=== PATIENT | male | born 1980 | race Caucasian/White ===

== ENCOUNTER 2016-05-28 08:39 | Emergency (ER) | payer SELFPAY ==
--- NOTE | 2016-05-28 08:51 | ED.PDOC ---
History of Present Illness - General Stated Complaint: cough, congestion Time Seen by Provider: 05/28/16 08:50 Source: patient, RN notes reviewed, Vital Signs reviewed Exam Limitations: no limitations - History of Present Illness Initial Comments: Hemant Jefferson 35 y/o male smoker stated that he started getting sick with cough and congestion one week ago and had gotten worse becoming more frequent quit smoking 4 days ago.Denies chronic medical problem stating had never been sick before.Denies exposure to someone sick. Timing/Duration: getting worse, other - 7 days ago Severity: moderate Possible Cause: smoke exposure Improving Factors: nothing, eating Worsening Factors: nothing Associated Symptoms: cough, nasal drainage Respiratory Risk Factors: no cause identified Allergies/Adverse Reactions: Allergies NO KNOWN ALLERGY Allergy (Verified 05/28/16 08:48) Home Medications: Ambulatory Orders Cefuroxime Axetil [Ceftin] 500 mg PO BID #14 tab 05/28/16 Chlorpheniramine Maleate [Chlor-Trimeton Allergy] 12 mg PO BID #30 tab 05/28/16 Dextromethorphan-Guaifenesin [Mucinex Dm Maximum Streng 60-1200 mg] 1 tab PO BID #30 tab 05/28/16 Review of Systems - Review of Systems Constitutional: States: no symptoms reported, see HPI EENTM: States: no symptoms reported, see HPI Respiratory: States: see HPI Cardiology: States: no symptoms reported Gastrointestinal/Abdominal: States: no symptoms reported Genitourinary: States: no symptoms reported Musculoskeletal: States: no symptoms reported Skin: States: no symptoms reported Neurological: States: no symptoms reported Endocrine: States: no symptoms reported Hematologic/Lymphatic: States: no symptoms reported Past Medical History (General) - Patient Medical History Hx Stroke: No Hx Congestive Heart Failure: No Hx Diabetes: No Hx MRSA: No MRSA Source:: Wound Surgical History: no surgical history - Vaccination History Hx Tetanus, Diphtheria Vaccination: - unknown Hx Influenza Vaccination: No Hx Pneumococcal Vaccination: No - Social History Hx Tobacco Use: Yes - Quit beginning of 05/2016 - Activities of Daily Living Patient Lives Alone: No - family Grooming Ability: Independent Eating (Feeding) Ability: Independent Toileting Ability: Independent Family Medical History - Family History Mother Family History: No Known Living Status: Still Living Hx Family Asthma: Yes - copd dad Physical Exam - Physical Exam General Appearance: Alert, Comfortable, No apparent distress Eye Exam: bilateral normal ENT Exam: normal ENT inspection, hearing grossly normal, TMs normal, pharynx normal, nasal congestion Neck: non-tender, full range of motion Respiratory: chest non-tender, lungs clear, normal breath sounds, no respiratory distress, no accessory muscle use Cardiovascular/Chest: normal peripheral pulses, regular rate, rhythm, no edema, no gallop, no JVD, no murmur Gastrointestinal/Abdominal: normal bowel sounds, non tender, soft, no organomegaly, no pulsatile mass Extremity: normal range of motion, non-tender, normal inspection, no pedal edema , no calf tenderness Neurologic: no motor/sensory deficits, alert, normal mood/affect, oriented x 3, abnormal cerebellar tests Skin Exam: normal color, warm/dry Lymphatic: no adenopathy Progress - Results/Orders Results/Orders: 05/28/16 08:52 SVN/Updraft Therapy .ONCE 05/28/16 08:53 IV Care:Saline Lock per Protoc QSHIFT 05/28/16 09:[facility] Laboratory Results WBC 13.7 K/mm3 (4.8-10.8) H 05/28/16 09:05 RBC 5.49 M/mm3 (4.70-6.10) 05/28/16 09:05 Hgb 15.1 gm/dL (14.0-18.0) 05/28/16 09:05 Hct 45.2 % (42.0-52.0) 05/28/16 09:05 MCV 82.4 fl (80.0-94.0) 05/28/16 09:05 MCH 27.5 pg (27.0-31.0) 05/28/16 09:05 MCHC 33.3 g/dL (33.0-37.0) 05/28/16 09:05 RDW 14.2 % (11.5-14.5) 05/28/16 09:05 Plt Count 247 K/mm3 (130-400) 05/28/16 09:05 MPV 9.4 fl (7.40-10.4) 05/28/16 09:05 Absolute Neuts (auto) 10.30 K/uL (1.8-6.8) H 05/28/16 09:05 Absolute Lymphs (auto) 1.60 K/uL (1.0-3.4) 05/28/16 09:05 Absolute Monos (auto) 1.40 K/uL (0.2-0.8) H 05/28/16 09:05 Absolute Eos (auto) 0.10 K/uL (0.0-0.4) 05/28/16 09:05 Absolute Basos (auto) 0.30 K/uL (0.0-0.1) H 05/28/16 09:05 Neutrophils % 75.5 % (42.0-78.0) 05/28/16 09:05 Lymphocytes % 11.7 % (20.0-50.0) L 05/28/16 09:05 Monocytes % 10.3 % (2.0-9.0) H 05/28/16 09:05 Eosinophils % 0.5 % (1.0-5.0) L 05/28/16 09:05 Basophils % 2.0 % (0.0-2.0) 05/28/16 09:05 - EKG/XRAY/CT XRAY: chest - no acute abnormality Departure - Departure Clinical Impression: Bronchitis Sinusitis Qualifiers: Sinusitis location: unspecified location Chronicity: acute Recurrence: not specified Qualifier Code: (J01.90) Acute sinusitis, unspecified Time of Disposition: 10:18 Disposition: Discharge to Home or Self Care Condition: Good Departure Forms: ED Discharge - Pt. Copy Instructions: DI for Acute Bronchitis, DI for Sinusitis, Assess Your Smoking Habit, Serious Ways to Stop Smoking Prescriptions: Cefuroxime Axetil [Ceftin] 500 mg PO BID #14 tab Chlorpheniramine Maleate [Chlor-Trimeton Allergy] 12 mg PO BID #30 tab Dextromethorphan-Guaifenesin [Mucinex Dm Maximum Streng 60-1200 mg] 1 tab PO BID #30 tab Home Medications: Ambulatory Orders Cefuroxime Axetil [Ceftin] 500 mg PO BID #14 tab 05/28/16 Chlorpheniramine Maleate [Chlor-Trimeton Allergy] 12 mg PO BID #30 tab 05/28/16 Dextromethorphan-Guaifenesin [Mucinex Dm Maximum Streng 60-1200 mg] 1 tab PO BID #30 tab 05/28/16
[2016-05-28] MEDS ORDERED: IPRATROPIUM/ALBUTEROL 3 ML VIAL NEB ONE ×2 (09:06→09:08)
--- NOTE | 2016-05-28 10:02 | RAD ---
EXAM DESCRIPTION: Chest,2 Views CLINICAL HISTORY: Cough COMPARISON: 06/11/2015 TECHNIQUE: Two-views of the chest. FINDINGS: Normal cardiomediastinal silhouette. No edema, infiltrate or effusion. No interval change IMPRESSION: No acute chest process. Electronically signed by: Yoni Cortes MD 05/28/2016 10:01 AM CDT
[2016-05-28] MEDS ORDERED: cefTRIAXone SODIUM 1 GM VIAL IM ONE (10:26)
[2016-05-28] MEDS ORDERED: LIDOCAINE 1% 10 ML VIAL INJ ONE (10:32)
[2016-05-28 11:27] VITALS: BP 128/82; TEMP 98.9; O2SAT 96
== END 2016-05-28 11:00 | disposition home or self-care (01) ==
LOC: ER 08:39
DX: J40 Bronchitis, not specified as acute or chronic (principal); J01.90 Acute sinusitis, unspecified; Z87.891 Personal history of nicotine dependence
CPT/HCPCS: 36415; 71020; 85025; 94640; J0696; J7620

== ENCOUNTER 2016-12-25 16:27 | Emergency (ER) | payer MEDICAID ==
[2016-12-25 16:37] VITALS: BP 148/91; TEMP 98.7; O2SAT 95
[2016-12-25] MEDS ORDERED: GABAPENTIN 300 MG CAP PO ONE ×2 (16:51→17:17)
[2016-12-25] MEDS ORDERED: HYDROcodone 7.5MG/APAP 325MG 1 EA TAB PO ONE (16:51)
[2016-12-25] MEDS ORDERED: predniSONE 20 MG TAB PO ONE (16:51)
--- NOTE | 2016-12-25 16:54 | ED.PDOC ---
History of Present Illness - General Chief Complaint: Upper Extremity Injury Stated Complaint: Left forearm discomfort/injury Time Seen by Provider: 12/25/16 16:43 Source: patient Exam Limitations: no limitations - History of Present Illness Initial Comments: the patient is a 36-year-old male presenting to the emergency room secondary to pain in his left upper extremity. He was playing with his children when he got not down and hit his left elbow just lateral to his olecranon. There is no laceration. There is a mild abrasion where he hit. There is no bony deformity or crepitus. He is neurovascularly preserved. Strength is at his baseline. He reports that moving the forearm does cause pain in that area. It is a shooting type pain and he is getting some mild muscle spasm. Range of motion is preserved actively and passively. The patient has had a wrist surgery on that side previously. Timing/Duration: momentarily, 1/2 hour Severity: moderate Improving Factors: nothing Worsening Factors: movement Associated Symptoms: denies symptoms Allergies/Adverse Reactions: Allergies NO KNOWN ALLERGY Allergy (Verified 12/25/16 16:40) Home Medications: Ambulatory Orders Fcrnqtjtmqool-Skyq-Putfntklut [Fioricet] 1 ea PO Q8H PRN #21 tab 12/25/16 predniSONE [Prednisone] 20 mg PO DAILY #3 tab 12/25/16 Review of Systems - Review of Systems Constitutional: States: no symptoms reported EENTM: States: no symptoms reported Respiratory: States: no symptoms reported Cardiology: States: no symptoms reported Gastrointestinal/Abdominal: States: no symptoms reported Genitourinary: States: no symptoms reported Musculoskeletal: States: see HPI Skin: States: see HPI Neurological: States: no symptoms reported, anxiety Endocrine: States: no symptoms reported All other Systems: No Change from Baseline Past Medical History (General) - Patient Medical History Hx Stroke: No Hx Congestive Heart Failure: No Hx Diabetes: No Hx MRSA: No MRSA Source:: Wound - Vaccination History Hx Tetanus, Diphtheria Vaccination: - unknown Hx Influenza Vaccination: No Hx Pneumococcal Vaccination: No - Social History Hx Tobacco Use: Yes Family Medical History - Family History Mother Family History: No Known Living Status: Still Living Hx Family Asthma: Yes - copd dad Physical Exam - Physical Exam General Appearance: Alert, Anxious Eye Exam: bilateral normal Ears, Nose, Throat: hearing grossly normal, normal ENT inspection, normal pharynx Neck: full range of motion, supple Respiratory: chest non-tender, lungs clear, normal breath sounds, no respiratory distress, no accessory muscle use Cardiovascular/Chest: normal peripheral pulses, no edema Peripheral Pulses: radial,right: 2+, radial,left: 2+ Rectal Exam: deferred Extremity: normal range of motion - given his chronic changes, no pedal edema, no calf tenderness, normal capillary refill, other - pain as above. Neurologic: benefit authorizer II-XII nml as tested, no motor/sensory deficits - at this time. , alert, oriented x 3 - he is very anxious Skin Exam: normal color Comments: Vital Signs - 24 hr 12/25/16 16:35 Temperature 98.7 F Pulse Rate [ 114 H Right Radial] Respiratory 20 Rate Blood Pressure 148/91 [Right Arm] O2 Sat by Pulse 95 Oximetry Progress - Progress Progress: 12/25/16 16:59 the patient's 36-year-old male presenting to the emergency room secondary to pain in his left forearm that appears to be due to paresthesias likely from blunt trauma to his elbow today. The patient is encouraged to move the arm. The patient is being given a dose of Neurontin and prednisone here today. He is also given a dose of a pain pill. He will be written for Fioricet and another 3 days of prednisone to help reduce inflammation of the traumatized nerves. He should follow-up with his primary care doctor around Tuesday for reevaluation. X-rays are not indicated at this time. He can additionally take some ibuprofen as well. ER warnings were given. Departure - Departure Clinical Impression: Paresthesia of left upper limb Disposition: Discharge to Home or Self Care Condition: Fair Departure Forms: ED Discharge - Pt. Copy, Patient Portal Self Enrollment Diet: regular diet Activity: increase activity as tolerated Prescriptions: Gwxnixiourhjw-Dehu-Xebaqgfawe [Fioricet] 1 ea PO Q8H PRN #21 tab PRN Reason: Pain predniSONE [Prednisone] 20 mg PO DAILY #3 tab Home Medications: Ambulatory Orders Saraygmjspwso-Gtzc-Ryyepnwacu [Fioricet] 1 ea PO Q8H PRN #21 tab 12/25/16 predniSONE [Prednisone] 20 mg PO DAILY #3 tab 12/25/16 Additional Instructions: the patient's 36-year-old male presenting to the emergency room secondary to pain in his left forearm that appears to be due to paresthesias likely from blunt trauma to his elbow today. The patient is encouraged to move the arm. The patient is being given a dose of Neurontin and prednisone here today. He is also given a dose of a pain pill. He will be written for Fioricet and another 3 days of prednisone to help reduce inflammation of the traumatized nerves. He should follow-up with his primary care doctor around Tuesday for reevaluation. X-rays are not indicated at this time. He can additionally take some ibuprofen as well. ER warnings were given.
[2016-12-25] MEDS ORDERED: GABAPENTIN 100 MG CAP ONE (17:07)
== END 2016-12-25 17:07 | disposition home or self-care (01) ==
LOC: ER 16:27
DX: R20.0 Anesthesia of skin (principal)

== ENCOUNTER 2017-01-04 17:45 | Emergency (ER) | payer MEDICAID ==
--- NOTE | 2017-01-04 18:00 | ED.PDOC ---
History of Present Illness - General Chief Complaint: Upper Extremity Injury Stated Complaint: left shoulder pain Time Seen by Provider: 01/04/17 17:59 Source: patient Exam Limitations: no limitations - History of Present Illness Initial Comments: Hemant Jefferson 36 y/o male stated that he has burning sharp pains on and off for the last 4-5 days on his left shoulder aggravated by moving it up but on waking up this am got worse this time it radiated up his neck and pain on moving neck sideways denies any history of recent trauma,no fever chills, numbness weakness or chest pains. Occurred: other - 4-5 days ago Pain - Upper Extremity: moderate: Shoulder, left Method of Injury: unknown Improving Factors: rest Worsening Factors: movement Allergies/Adverse Reactions: Allergies NO KNOWN ALLERGY Allergy (Verified 12/25/16 16:40) Home Medications: Ambulatory Orders Cyclobenzaprine HCl [Flexeril] 5 mg PO TID PRN #20 tab 01/04/17 Diclofenac Sodium [Voltaren] 75 mg PO BID #30 tab 01/04/17 Review of Systems - Review of Systems Musculoskeletal: States: see HPI All other Systems: Reviewed and Negative, No Change from Baseline Past Medical History (General) - Patient Medical History Hx Stroke: No Hx Congestive Heart Failure: No Hx Diabetes: No Hx MRSA: No MRSA Source:: Wound Surgical History: other - foot surgery - Vaccination History Hx Tetanus, Diphtheria Vaccination: - unknown Hx Influenza Vaccination: No Hx Pneumococcal Vaccination: No - Social History Hx Tobacco Use: Yes Hx Physical Abuse: No Hx Emotional Abuse: No Hx Suspected Abuse: No Family Medical History - Family History Mother Family History: No Known Living Status: Still Living Hx Family Asthma: Yes - copd dad Physical Exam - Physical Exam General Appearance: Alert, No apparent distress Eyes, Ears, Nose, Throat Exam: PERRL/EOMI, normal ENT inspection Neck: non-tender, limited range of motion - lateral flexion, other - no carotid bruits Cardiovascular/Respiratory: regular rate, rhythm, normal peripheral pulses, normal breath sounds Back Exam: normal inspection, no CVA tenderness, no vertebral tenderness Shoulder Exam: normal inspection, no evidence of injury, limited ROM - flexion/ external rotation left shoulder, pain, soft tissue tenderness - suprascapular muscle left Elbow/Forearm Exam: no evidence of injury Wrist Exam: no evidence of injury Hand Exam: no evidence of injury Neuro/Tendon: normal sensation, normal motor functions, normal tendon functions Mental Status: alert, oriented x 3 Skin Exam: normal color, warm/dry Progress - Progress Progress: 01/04/17 19:16 Last Vital Signs Temp 97.1 F L 01/04/17 17:53 Pulse 101 H 01/04/17 17:53 Resp 20 01/04/17 17:53 BP 140/98 01/04/17 17:53 Pulse Ox 96 01/04/17 17:53 - EKG/XRAY/CT XRAY: shoulder no abnormality - no abnormality Departure - Departure Clinical Impression: Neck pain on left side Shoulder pain, left Qualifiers: Chronicity: unspecified Qualified Code(s): M25.512 - Pain in left shoulder Time of Disposition: 19:17 Disposition: Discharge to Home or Self Care Condition: Good Departure Forms: ED Discharge - Pt. Copy, Patient Portal Self Enrollment Instructions: DI for Shoulder Pain, Shoulder Tendinopathy, DI for Neck Pain, Neck Pain (Alternative Therapy) Prescriptions: Cyclobenzaprine HCl [Flexeril] 5 mg PO TID PRN #20 tab PRN Reason: Muscle Spasms Diclofenac Sodium [Voltaren] 75 mg PO BID #30 tab Home Medications: Ambulatory Orders Cyclobenzaprine HCl [Flexeril] 5 mg PO TID PRN #20 tab 01/04/17 Diclofenac Sodium [Voltaren] 75 mg PO BID #30 tab 01/04/17 Additional Instructions: NEED TO SIGN UP WITH PRIMARY MD CARMELINAFC-[phone] patient to call for appoint for follow up
[2017-01-04 18:28] VITALS: TEMP 97.1; O2SAT 96
[2017-01-04] MEDS: HYDROcodone 7.5MG/APAP 325MG 1 EA TAB PO ONE (18:35)
[2017-01-04] MEDS: GABAPENTIN 300 MG CAP PO ONE (18:35)
[2017-01-04] MEDS: ORPHENADRINE CITRATE 30 MG/ML AMP IM ONE (18:36)
[2017-01-04] MEDS: KETOROLAC TROMETHAMINE INJ 30 MG/ML VIAL IM ONE (18:38)
--- NOTE | 2017-01-04 18:56 | RAD ---
EXAM: Cervical Spine,3 Views CLINICAL INDICATION: 36-year-old male with pain. TECHNIQUE: Three views of the cervical spine were obtained in AP, lateral, and odontoid projections. COMPARISON: None. FINDINGS: The cervical spine is visualized to the bottom of C7. Alignment of the cervical spine is within normal limits. There is no subluxation or fracture deformity. Morphology of the vertebral bodies and intervertebral disc spaces is within normal limits. The prevertebral soft tissues are within normal limits. The airway is patent. Limited visualization of the lung apices is within normal limits. The remainder of the visualized bones are within normal limits. IMPRESSION: No acute radiographic abnormality. If patient's pain persists, repeat radiographs in 7 to 10 days or MRI cervical spine may be considered as clinically indicated. Electronically signed by: Janis Martinez MD 01/04/2017 6:55 PM [facility] Workstation: [id number]
--- NOTE | 2017-01-04 18:57 | RAD ---
EXAM: Shoulder,Left 2 or More Views CLINICAL INDICATION: 36-year-old male with pain. TECHNIQUE: Two views LEFT shoulder were obtained in AP, internal/external rotation projections. COMPARISON: None. FINDINGS: There is no fracture or dislocation. The joint spaces are preserved. No soft tissue abnormalities are seen. IMPRESSION: No acute radiographic abnormality. Electronically signed by: Janis Martinez MD 01/04/2017 6:56 PM [employer] [employer] Workstation: [id number]
[2017-01-04 19:33] VITALS: BP 129/87
== END 2017-01-04 19:33 | disposition home or self-care (01) ==
LOC: ER 17:45
DX: M25.512 Pain in left shoulder (principal); M54.2 Cervicalgia

== ENCOUNTER 2017-01-07 10:22 | Emergency (ER) | payer MEDICAID, OTHER ==
[2017-01-07 10:34] VITALS: O2SAT 99
--- NOTE | 2017-01-07 10:43 | ED.PDOC ---
History of Present Illness - General Chief Complaint: General Stated Complaint: L shoulder discomfort Time Seen by Provider: 01/07/17 10:42 Source: patient Exam Limitations: no limitations - History of Present Illness Initial Comments: Hemant Jefferson 36 y/o male seen 2 1 /2 days ago with 5 day worsening non traumatic left shoulder pain for almost 5 months and x ray studies showing no acute bony abnormalities.Was given prescription for medication which he claimed made it better but doubt if he took it today.Stating having pain and numbness that starts from neck goes down to left shoulder down to arm no chest pains. Timing/Duration: other - 5 days ago Improving Factors: rest Worsening Factors: movement Associated Symptoms: other - see hpi Allergies/Adverse Reactions: Allergies NO KNOWN ALLERGY Allergy (Verified 01/07/17 10:34) Home Medications: Ambulatory Orders NK [NK] 01/07/17 Past Medical History (General) - Patient Medical History Hx Stroke: No Hx Congestive Heart Failure: No Hx Diabetes: No Hx MRSA: No MRSA Source:: Wound Surgical History: other - Vaccination History Hx Tetanus, Diphtheria Vaccination: - unknown Hx Influenza Vaccination: No Hx Pneumococcal Vaccination: No - Social History Hx Tobacco Use: No Hx Physical Abuse: No Hx Emotional Abuse: No Hx Suspected Abuse: No Family Medical History - Family History Mother Family History: No Known Living Status: Still Living Hx Family Asthma: Yes - copd dad Physical Exam - Physical Exam General Appearance: Agitated, Comfortable, No apparent distress Eye Exam: bilateral normal Ears, Nose, Throat: hearing grossly normal, normal ENT inspection Neck: non-tender, full range of motion, supple, normal inspection, other - axial loading test negative neck Respiratory: chest non-tender, lungs clear, normal breath sounds Cardiovascular/Chest: normal peripheral pulses, regular rate, rhythm, no murmur Peripheral Pulses: radial,right: 2+, radial,left: 2+ Gastrointestinal/Abdominal: normal bowel sounds, non tender, soft, no organomegaly Back Exam: normal inspection, no CVA tenderness, no vertebral tenderness Extremity: no pedal edema, no calf tenderness, other - moves all fingers Neurologic: no motor/sensory deficits, alert, oriented x 3, other - able to feel pinch sensation both axillary muscle Skin Exam: normal color, warm/dry Lymphatic: no adenopathy Progress - Progress Progress: 01/07/17 10:55 Last Vital Signs Temp 98.1 F 01/07/17 10:33 Pulse 81 01/07/17 10:33 Resp 20 01/07/17 10:33 BP 153/96 01/07/17 10:33 Pulse Ox 99 01/07/17 10:33 Departure - Departure Clinical Impression: Neck pain on left side Shoulder pain, left Qualifiers: Chronicity: unspecified Qualified Code(s): M25.512 - Pain in left shoulder Time of Disposition: 10:57 Disposition: Discharge to Home or Self Care Departure Forms: ED Discharge - Pt. Copy, Patient Portal Self Enrollment Referrals: Ravi Luna MD [Primary Care Provider] - 1-2 Weeks Home Medications: Ambulatory Orders NK [NK] 01/07/17 Additional Instructions: Continue to take those prescribed medications and make appointment with [facility] - [phone] 01/10/2017 patient to call for appointment in am
[2017-01-07] MEDS ORDERED: GABAPENTIN 300 MG CAP PO ONE (10:55)
[2017-01-07] MEDS ORDERED: traMADol HCL 50 MG TAB PO ONE (10:55)
[2017-01-07] MEDS ORDERED: predniSONE 10 MG TAB PO ONE (10:55)
[2017-01-07 11:40] VITALS: BP 142/82; TEMP 98
== END 2017-01-07 11:39 | disposition home or self-care (01) ==
LOC: ER 10:22
DX: M25.512 Pain in left shoulder (principal); M54.2 Cervicalgia

== ENCOUNTER 2017-01-10 10:56 | Emergency (ER) | payer OTHER ==
[2017-01-10 11:39] VITALS: TEMP 98.1; O2SAT 96
--- NOTE | 2017-01-10 11:50 | ED.PDOC ---
History of Present Illness - General Chief Complaint: General Stated Complaint: left arm/shoulder pain for 2 wks Time Seen by Provider: 01/10/17 11:44 Source: patient Additional Information: 4TH VISIT FOR THIS PT. NON TRAUMATIC L SHOULDER/ARM PAIN. IS PRIMARILY JUST MEDIAL TO SCAPULA WITH RADIATION INTO THE L NECK AND TRAPEZIUS. SHARP, - History of Present Illness Initial Comments: HAVE REVIEWED OLD RECORDS. PT WAS SEEN HERE, HAS HAD CERVICAL SPINE AND L SHOULDER FILMS ALL NL. PO STEROIDS, NSAIDS, AND NARCOTIC PAIN MEDS. Timing/Duration: other - 2 WEEKS Severity: moderate Improving Factors: nothing Worsening Factors: movement Associated Symptoms: denies symptoms Allergies/Adverse Reactions: Allergies NO KNOWN ALLERGY Allergy (Verified 01/07/17 10:34) Home Medications: Ambulatory Orders Cyclobenzaprine HCl [Flexeril] 10 mg PO TID PRN #15 tab 01/10/17 Indomethacin 50 mg PO TID PRN #14 cap 01/10/17 Methylprednisolone [Medrol Dose Darinel] 4 mg PO DAILY #1 tab 01/10/17 Review of Systems - Review of Systems Constitutional: Denies: chills, fever EENTM: States: no symptoms reported Respiratory: Denies: cough, short of breath Cardiology: Denies: chest pain, palpitations Gastrointestinal/Abdominal: Denies: nausea, vomiting Genitourinary: States: no symptoms reported Musculoskeletal: States: neck pain. Denies: back pain Skin: States: no symptoms reported Neurological: States: numbness - L HAND. Denies: paresthesia, weakness Endocrine: States: no symptoms reported Hematologic/Lymphatic: States: no symptoms reported Past Medical History (General) - Patient Medical History Hx Seizures: No Hx Stroke: No Hx Dementia: No Hx Asthma: No Hx of COPD: No Hx Cardiac Disorders: No Hx Congestive Heart Failure: No Hx Pacemaker: No Hx Hypertension: No Hx Thyroid Disease: No Hx Diabetes: No Hx Gastroesophageal Reflux: No Hx Renal Disease: No Hx Cancer: No Hx of HIV: No Hx Hepatitis C: No Hx MRSA: No MRSA Source:: Wound - Vaccination History Hx Tetanus, Diphtheria Vaccination: - unknown Hx Influenza Vaccination: No Hx Pneumococcal Vaccination: No - Social History Hx Tobacco Use: Yes Hx Physical Abuse: No Hx Emotional Abuse: No Hx Suspected Abuse: No - Triage Comment ED Triage Comment: Patient states that he has been seen in the ER the past 2 weeks for his left shoulder pain. Was given pain medication and muscle relaxer that is not working. 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 Respiratory: lungs clear, normal breath sounds Cardiovascular/Chest: regular rate, rhythm, no murmur Gastrointestinal/Abdominal: non tender, soft, no organomegaly Back Exam: normal inspection, no CVA tenderness, other - MILD-MOD TTP MEDIAL SCAPULA Extremity: normal range of motion, non-tender, normal inspection, other - NVI Neurologic: no motor/sensory deficits, alert, oriented x 3 DTR: 2+: Biceps, left, Biceps, right, Triceps, left, Triceps, right Skin Exam: normal color, warm/dry Progress - Progress Progress: 01/10/17 12:43 FEELS BETTER. HAVE ADVISED F/U WITH PCP FOR MRI Departure - Departure Clinical Impression: Cervical radiculopathy ICD-10 Supporting Text: DDX: MUSCULOSKELETAL PAIN Time of Disposition: 12:44 Disposition: Discharge to Home or Self Care Condition: Good Departure Forms: ED Discharge - Pt. Copy, Patient Portal Self Enrollment Instructions: DI for Cervical Radiculopathy Referrals: Ravi Luna MD [Primary Care Provider] - 1-2 Weeks Prescriptions: Cyclobenzaprine HCl [Flexeril] 10 mg PO TID PRN #15 tab PRN Reason: Pain Indomethacin 50 mg PO TID PRN #14 cap PRN Reason: Pain Methylprednisolone [Medrol Dose Darinel] 4 mg PO DAILY #1 tab Home Medications: Ambulatory Orders Cyclobenzaprine HCl [Flexeril] 10 mg PO TID PRN #15 tab 01/10/17 Indomethacin 50 mg PO TID PRN #14 cap 01/10/17 Methylprednisolone [Medrol Dose Darinel] 4 mg PO DAILY #1 tab 01/10/17
[2017-01-10] MEDS ORDERED: methylPREDNISolone SODIUM SUC 125 MG/2 ML VIAL IM ONE (11:53)
[2017-01-10] MEDS ORDERED: KETOROLAC TROMETHAMINE INJ 60 MG/2 ML VIAL IM ONE (11:53)
[2017-01-10] MEDS ORDERED: ORPHENADRINE CITRATE 30 MG/ML AMP IM ONE (11:53)
[2017-01-10 13:00] VITALS: BP 138/87
== END 2017-01-10 13:00 | disposition home or self-care (01) ==
LOC: ER 10:56
DX: M54.12 Radiculopathy, cervical region (principal)
CPT/HCPCS: J1885; J2360; J2930

== ENCOUNTER 2017-01-22 17:41 | Emergency (ER) | payer OTHER ==
[2017-01-22 19:22] VITALS: O2SAT 94
--- NOTE | 2017-01-22 19:27 | ED.PDOC ---
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 ONE DAY HE WOKE UP FROM SLEEP WITH A UPPER [place]OU[place] IN THE NECK SOON AFTER THAT HE STARTED EXPERIENCING PAIN IN THE LEFT SHOULDER RADIATNG DOWN HIS LEFT ARM AND NOW FEELS WEAK IN THE OBSTETRICIAN THAT HE DROPS THINGS UNABLE HOLD EVEN A PAPER AT TIMES HE HAS NUMNESS BELOW THE LEFT ELBOW SOMETIMES THERE IS TINGLING AND BURNING PAIN HE HAS HAD SEVERAL VISITS HERE AND PCP BUT NOT GETTING ANY BETTER Timing/Duration: constant Severity: moderate, severe Improving Factors: nothing Worsening Factors: movement Associated Symptoms: denies symptoms Allergies/Adverse Reactions: Allergies NO KNOWN ALLERGY Allergy (Verified 01/22/17 19:13) Home Medications: Ambulatory Orders Cyclobenzaprine HCl [Flexeril] 10 mg PO TID PRN #15 tab 01/10/17 Indomethacin 50 mg PO TID PRN #14 cap 01/10/17 Methylprednisolone [Medrol Dose Darinel] 4 mg PO DAILY #1 tab 01/10/17 Review of Systems - Review of Systems Constitutional: States: no symptoms reported EENTM: States: no symptoms reported Respiratory: States: no symptoms reported Cardiology: States: no symptoms reported Gastrointestinal/Abdominal: States: no symptoms reported Genitourinary: States: no symptoms reported Musculoskeletal: States: no symptoms reported Skin: States: no symptoms reported Neurological: States: no symptoms reported Endocrine: States: no symptoms reported Past Medical History (General) - Patient Medical History Hx Seizures: No Hx Stroke: No Hx Dementia: No Hx Asthma: No Hx of COPD: No Hx Cardiac Disorders: No Hx Congestive Heart Failure: No Hx Pacemaker: No Hx Hypertension: No Hx Thyroid Disease: No Hx Diabetes: No Hx Gastroesophageal Reflux: No Hx Renal Disease: No Hx Cancer: No Hx of HIV: No Hx Hepatitis C: No Hx MRSA: No MRSA Source:: Wound Surgical History: other - Vaccination History Hx Tetanus, Diphtheria Vaccination: No Hx Influenza Vaccination: No Hx Pneumococcal Vaccination: No - Social History Hx Tobacco Use: Yes Hx Alcohol Use: No Hx Substance Use: No Hx Substance Use Treatment: No Hx Depression: No Hx Physical Abuse: No Hx Emotional Abuse: No Hx Suspected Abuse: No - Triage Comment ED Triage Comment: Presents to ER --c/o Left neck pain radiates down Lt arm x 3 to 3 weeks now states Family Medical History - Family History Mother Family History: No Known Living Status: Still Living Hx Family Asthma: Yes - copd dad Physical Exam - Physical Exam General Appearance: Alert, Obvious distress Ears, Nose, Throat: hearing grossly normal, normal ENT inspection, normal pharynx Neck: non-tender, full range of motion, supple Respiratory: chest non-tender, lungs clear, normal breath sounds, no respiratory distress Cardiovascular/Chest: normal peripheral pulses, regular rate, rhythm, no edema, no gallop Gastrointestinal/Abdominal: normal bowel sounds, non tender, soft, no organomegaly, no pulsatile mass Back Exam: normal inspection, no CVA tenderness, no vertebral tenderness Extremity: normal range of motion - HE HAS DEMINISHED SENSATION ON THE LEFT ARM BELOW ELBOW AND WEAK OBSTETRICIAN 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 Copy, Patient Portal Self Enrollment Instructions: DI for Arm Pain Referrals: Ravi Luna MD [Primary Care Provider] - 1-2 Weeks Home Medications: Ambulatory Orders Cyclobenzaprine HCl [Flexeril] 10 mg PO TID PRN #15 tab 01/10/17 Indomethacin 50 mg PO TID PRN #14 cap 01/10/17 Methylprednisolone [Medrol Dose Darinel] 4 mg PO DAILY #1 tab 01/10/17
[2017-01-22] MEDS ORDERED: DEXAMETHASONE INJ 10 MG/ML VIAL IM ONE (19:28)
[2017-01-22] MEDS ORDERED: KETOROLAC TROMETHAMINE INJ 60 MG/2 ML VIAL IM ONE (19:29)
[2017-01-22] MEDS ORDERED: ORPHENADRINE CITRATE 30 MG/ML AMP IM ONE (19:30)
--- NOTE | 2017-01-22 20:30 | CT ---
EXAM DATE: 01/22/2017 7:[address] TECHNOLOGIST. PROCEDURE: CT CERVICAL SPINE WITHOUT IV CONTRAST. INDICATION: PAIN. COMPARISON: None. TECHNIQUE: Axial CT images of the cervical spine were obtained without administration of intravenous contrast. This exam was performed according to our departmental dose-optimization program which includes use of Automated Exposure Control, adjustment of the mA and/or kV according to patient size and/or use of iterative reconstruction technique. FINDINGS: The cervical vertebral bodies demonstrate normal height and alignment. The intervertebral disc spaces are within normal limits. Normal craniocervical junction and facet joints. No acute fracture. There is mild uncovertebral spurring at C6-C7 which contributes to mild right foraminal narrowing. The remainder of the cervical spine demonstrates no significant spinal canal or neural foraminal stenosis. The soft tissues of the neck are unremarkable. The thyroid is somewhat lobulated however no discrete nodule is identified. The lung apices are clear. IMPRESSION: No acute fracture or traumatic subluxation of the cervical spine. Electronically signed by: Gordon Henry MD 01/22/2017 8:[address] TECHNOLOGIST
[2017-01-22] MEDS ORDERED: fentaNYL CITRATE INJ 50 MCG/ML AMP IM ONE (20:33)
[2017-01-22 21:42] VITALS: BP 128/85; TEMP 97.7
== END 2017-01-22 21:35 | disposition home or self-care (01) ==
LOC: ER 17:41
DX: M54.12 Radiculopathy, cervical region (principal); Z87.891 Personal history of nicotine dependence
CPT/HCPCS: 72125; J1100; J1885; J2360; J3010

== ENCOUNTER 2017-04-23 23:13 | Emergency (ER) | payer SELFPAY ==
[2017-04-23] MEDS ORDERED: IPRATROPIUM/ALBUTEROL 3 ML VIAL NEB ONE (23:38)
[2017-04-23] MEDS ORDERED: DEXAMETHASONE INJ 4 MG/ML VIAL IM ONE (23:39)
[2017-04-23] MEDS ORDERED: diphenhydrAMINE HCL 25 MG CAP PO ONE (23:39)
[2017-04-23] MEDS ORDERED: predniSONE 20 MG TAB PO ONE (23:39)
--- NOTE | 2017-04-23 23:46 | ED.PDOC ---
History of Present Illness - General Chief Complaint: General Stated Complaint: cough Time Seen by Provider: 04/23/17 23:34 Source: patient Exam Limitations: no limitations - History of Present Illness Initial Comments: Hemant Jefferson 36 y/o male stated that he had non productive cough for the last one week and took Mucinex which got better for the last 2 days and it recurred again with nasal congestion.No fever/chills,no sob. Timing/Duration: other - 7 days Severity: moderate Improving Factors: nothing Worsening Factors: nothing Associated Symptoms: other - see hpi Allergies/Adverse Reactions: Allergies NO KNOWN ALLERGY Allergy (Verified 04/23/17 23:38) Home Medications: Ambulatory Orders Cyclobenzaprine HCl [Flexeril] 10 mg PO TID PRN #15 tab 01/10/17 Indomethacin 50 mg PO TID PRN #14 cap 01/10/17 Methylprednisolone [Medrol Dose Darinel] 4 mg PO DAILY #1 tab 01/10/17 Gabapentin [Neurontin] 300 mg PO BID #60 cap 01/22/17 Tramadol HCl [Ultram] 50 mg PO Q6H PRN #30 tab 01/22/17 Albuterol Inhaler [Ventolin Hfa Inhaler] 108 mcg IN Q6HRS PRN #1 inh 04/24/17 Amoxicillin [Amoxil] 1,000 mg PO BID #30 cap 04/24/17 Review of Systems - Review of Systems Constitutional: States: no symptoms reported EENTM: States: see HPI, nose congestion Respiratory: States: see HPI, cough Cardiology: States: no symptoms reported Gastrointestinal/Abdominal: States: no symptoms reported Genitourinary: States: no symptoms reported Musculoskeletal: States: no symptoms reported Skin: States: no symptoms reported All other Systems: Reviewed and Negative, No Change from Baseline Past Medical History (General) - Patient Medical History Hx Seizures: No Hx Stroke: No Hx Dementia: No Hx Asthma: No Hx of COPD: No Hx Cardiac Disorders: No Hx Congestive Heart Failure: No Hx Pacemaker: No Hx Hypertension: No Hx Thyroid Disease: No Hx Diabetes: No Hx Gastroesophageal Reflux: No Hx Renal Disease: No Hx Cancer: No Hx of HIV: No Hx Hepatitis C: No Hx MRSA: No MRSA Source:: Wound Surgical History: other - Vaccination History Hx Tetanus, Diphtheria Vaccination: No Hx Influenza Vaccination: No Hx Pneumococcal Vaccination: No - Social History Hx Tobacco Use: Yes Cigarettes Packs Per Day: 1 Hx Alcohol Use: No Hx Substance Use: No Hx Substance Use Treatment: No Hx Depression: No Feels Threatened In Home Enviroment: No Feels Threatened In a Relationship: No Hx Physical Abuse: No Hx Emotional Abuse: No Hx Suspected Abuse: No - Female History Patient is a Female of Child Bearing Age (10 -59 yrs old): No Family Medical History - Family History Mother Family History: No Known Living Status: Still Living Hx Family Asthma: Yes - copd dad Physical Exam - Physical Exam General Appearance: Alert, Comfortable, No apparent distress Eye Exam: bilateral normal Ears, Nose, Throat: hearing grossly normal, normal ENT inspection, normal pharynx Neck: non-tender, supple Respiratory: chest non-tender, no respiratory distress, wheezing - mild left> right side Cardiovascular/Chest: normal peripheral pulses, regular rate, rhythm, no murmur Peripheral Pulses: radial,right: 2+, radial,left: 2+ Gastrointestinal/Abdominal: normal bowel sounds, non tender, soft Back Exam: no CVA tenderness, no vertebral tenderness Extremity: no pedal edema, no calf tenderness Neurologic: alert, oriented x 3 Skin Exam: normal color, warm/dry Progress - Progress Progress: 04/24/17 00:53 Vital Signs - 8 hr 04/23/17 04/23/17 23:26 23:51 Temperature 97.9 F Pulse Rate 108 H Pulse Rate [ 106 H Right Brachial] Respiratory 18 18 Rate Blood Pressure 136/98 [Right Arm] O2 Sat by Pulse 93 L 95 Oximetry - Results/Orders Results/Orders: 04/23/17 23:39 SVN/Updraft Therapy .ONCE 04/24/17 00:51 SVN/Updraft Therapy .ONCE SVN/Updraft Therapy .PRN 04/24/17 09:00 Updrafts Daily Updrafts Daily Laboratory Results - last 24 hr 04/23/17 23:48 WBC 11.9 H RBC 5.11 Hgb 14.4 Hct 42.8 MCV 83.9 MCH 28.2 MCHC 33.6 RDW 14.2 Plt Count 230 MPV 9.0 Absolute Neuts (auto) 7.00 H Absolute Lymphs (auto) 2.90 Absolute Monos (auto) 1.30 H Absolute Eos (auto) 0.50 H Absolute Basos (auto) 0.10 Neutrophils % 59.1 Lymphocytes % 24.8 Monocytes % 10.7 H Eosinophils % 4.4 Basophils % 1.0 - EKG/XRAY/CT XRAY: chest - atelectasis O/W no acute abnormalities Departure - Departure Clinical Impression: Bronchitis Time of Disposition: 00:54 Disposition: Discharge to Home or Self Care Condition: Good Departure Forms: ED Discharge - Pt. Copy, Patient Portal Self Enrollment Instructions: Acute Bronchitis, DI for Acute Bronchitis Referrals: Ravi Luna MD [Primary Care Provider] - 1-2 Weeks Prescriptions: Albuterol Inhaler [Ventolin Hfa Inhaler] 108 mcg IN Q6HRS PRN #1 inh PRN Reason: Wheezing Amoxicillin [Amoxil] 1,000 mg PO BID #30 cap Home Medications: Ambulatory Orders Cyclobenzaprine HCl [Flexeril] 10 mg PO TID PRN #15 tab 01/10/17 Indomethacin 50 mg PO TID PRN #14 cap 01/10/17 Methylprednisolone [Medrol Dose Darinel] 4 mg PO DAILY #1 tab 01/10/17 Gabapentin [Neurontin] 300 mg PO BID #60 cap 01/22/17 Tramadol HCl [Ultram] 50 mg PO Q6H PRN #30 tab 01/22/17 Albuterol Inhaler [Ventolin Hfa Inhaler] 108 mcg IN Q6HRS PRN #1 inh 04/24/17 Amoxicillin [Amoxil] 1,000 mg PO BID #30 cap 04/24/17 Additional Instructions: Continue with Mucinex DM one tablet am/pm for cough;follow up with primary as needed
--- NOTE | 2017-04-24 00:34 | RAD ---
EXAM: PA and LATERAL CHEST RADIOGRAPHS CLINICAL INDICATION: Cough. COMPARISON: None. FINDINGS: Cardiac size and pulmonary vasculature are normal. Left basilar scar versus atelectasis. The lungs are otherwise clear. No pleural effusions or pneumothorax. No free peritoneal gas layering under the hemidiaphragms. No suspicious hilar or mediastinal lymphadenopathy. Bones are normal. IMPRESSION: Minimal left basilar scar versus atelectasis. Otherwise, normal chest radiographs. Electronically signed by: Cj Marti MD 04/24/2017 12:33 AM [facility]
[2017-04-24] MEDS ORDERED: LEVALBUTEROL NEBS 1.25 MG/3 ML VIAL NEB ONE (00:51)
[2017-04-24] MEDS ORDERED: AMOXICILLIN 500 MG CAP PO ONE (00:52)
[2017-04-24 01:26] VITALS: BP 140/89; TEMP 98.2; O2SAT 97
== END 2017-04-24 01:26 | disposition home or self-care (01) ==
LOC: ER 23:13
DX: J40 Bronchitis, not specified as acute or chronic (principal)
CPT/HCPCS: 36415; 71046; 85025; 94640; J1100; J7512; J7614; J7620; Q0163

== ENCOUNTER 2017-10-30 18:06 | Emergency (ER) | payer OTHER ==
[2017-10-30] MEDS ORDERED: IPRATROPIUM/ALBUTEROL 3 ML VIAL NEB ONE (18:36)
--- NOTE | 2017-10-30 18:44 | ED.PDOC ---
History of Present Illness - General Chief Complaint: Respiratory Problem Stated Complaint: cough x4 days Time Seen by Provider: 10/30/17 18:43 Source: patient Exam Limitations: no limitations - History of Present Illness Comments: Hemant Jefferson 37 y/o male stated that he has non productive cough for 4 days and nasal congestion.No nausea,vomiting chills,fever.Continue to smoke Timing/Duration: other - see hpi Cough Quality/Degree: dry cough Possible Cause: occasional episodes, other - smoking Improving Factors: nothing Worsening Factors: nothing Associated Symptoms: nasal congestion Allergies/Adverse Reactions: Allergies NO KNOWN ALLERGY Allergy (Verified 04/23/17 23:38) Home Medications: Ambulatory Orders Cyclobenzaprine HCl [Flexeril] 10 mg PO TID PRN #15 tab 01/10/17 Indomethacin 50 mg PO TID PRN #14 cap 01/10/17 Methylprednisolone [Medrol Dose Darinel] 4 mg PO DAILY #1 tab 01/10/17 Gabapentin [Neurontin] 300 mg PO BID #60 cap 01/22/17 Tramadol HCl [Ultram] 50 mg PO Q6H PRN #30 tab 01/22/17 Albuterol Inhaler [Ventolin Hfa Inhaler] 108 mcg IN Q6HRS PRN #1 inh 04/24/17 Amoxicillin [Amoxil] 1,000 mg PO BID #30 cap 04/24/17 Albuterol Inhaler [Ventolin Hfa Inhaler] 108 mcg IN Q6HRS PRN 14 Days #1 inh Amoxicillin [Amoxil] 500 mg PO TID 10 Days #30 cap 10/30/17 Dextromethorphan-Diphenhydrami [Diabetic Tussin Night Yuri 10-12.5-325 mg/5Ml] 2 tsp PO TID PRN 14 Days #240 ml 10/30/17 Review of Systems - Review of Systems Constitutional: States: no symptoms reported EENTM: States: no symptoms reported Respiratory: States: see HPI Cardiology: States: no symptoms reported Gastrointestinal/Abdominal: States: no symptoms reported Genitourinary: States: no symptoms reported Musculoskeletal: States: no symptoms reported Skin: States: no symptoms reported Neurological: States: no symptoms reported Past Medical History (General) - Patient Medical History Hx Seizures: No Hx Stroke: No Hx Dementia: No Hx Asthma: No Hx of COPD: No Hx Cardiac Disorders: No Hx Congestive Heart Failure: No Hx Pacemaker: No Hx Hypertension: No Hx Thyroid Disease: No Hx Diabetes: No Hx Gastroesophageal Reflux: No Hx Renal Disease: No Hx Cancer: No Hx of HIV: No Hx Hepatitis C: No Hx MRSA: No MRSA Source:: Wound - Vaccination History Hx Tetanus, Diphtheria Vaccination: No Hx Influenza Vaccination: No Hx Pneumococcal Vaccination: No - Social History Hx Tobacco Use: Yes Years Tobacco Use: 20 Cigarettes Packs Per Day: 20 Hx Alcohol Use: No Hx Substance Use: No Hx Substance Use Treatment: No Hx Depression: No Hx Physical Abuse: No Hx Emotional Abuse: No Hx Suspected Abuse: No Family Medical History - Family History Mother Family History: No Known Living Status: Still Living Hx Family Asthma: Yes - copd dad Physical Exam - Physical Exam General Appearance: Alert, Comfortable, No apparent distress Eye Exam: bilateral normal ENT Exam: normal ENT inspection, hearing grossly normal, nasal congestion Neck: non-tender, full range of motion, supple Respiratory: chest non-tender, no respiratory distress, other - coarse breath sounds Progress - Progress Progress: 10/30/17 19:19 Vital Signs - 8 hr 10/30/17 10/30/17 18:20 18:42 Temperature 98.6 F Pulse Rate 81 Pulse Rate [ 100 H right brachial] Respiratory 20 20 Rate Blood Pressure 124/85 [right brachial ] O2 Sat by Pulse 95 96 Oximetry - Results/Orders Results/Orders: Laboratory Results - last 24 hr 10/30/17 18:43 WBC 11.0 H RBC 5.09 Hgb 14.7 Hct 43.5 MCV 85.4 MCH 28.8 MCHC 33.7 RDW 13.6 Plt Count 262 MPV 8.9 Absolute Neuts (auto) 8.00 H Absolute Lymphs (auto) 1.80 Absolute Monos (auto) 0.90 H Absolute Eos (auto) 0.20 Absolute Basos (auto) 0.10 Neutrophils % 72.7 Lymphocytes % 16.1 L Monocytes % 8.5 Eosinophils % 1.7 Basophils % 1.0 - EKG/XRAY/CT XRAY: chest - no infiltrates Departure - Departure Clinical Impression: Bronchitis, acute, with bronchospasm Time of Disposition: 19:25 Disposition: Discharge to Home or Self Care Condition: Fair Departure Forms: ED Discharge - Pt. Copy, Patient Portal Self Enrollment Instructions: Acute Bronchitis, Adult (DC), Acute Bronchitis, Quitting Smoking , Drugs to Help You Stop Using Tobacco, Smoking: Not Just Harmful to Your Lungs and Heart Referrals: Ravi Luna MD [Primary Care Provider] - 1-2 Weeks Prescriptions: Albuterol Inhaler [Ventolin Hfa Inhaler] 108 mcg IN Q6HRS PRN 14 Days #1 inh PRN Reason: Wheezing Amoxicillin [Amoxil] 500 mg PO TID 10 Days #30 cap Dextromethorphan-Diphenhydrami [Diabetic Tussin Night Yuri 10-12.5-325 mg/5Ml] 2 tsp PO TID PRN 14 Days #240 ml PRN Reason: Cough Home Medications: Ambulatory Orders Cyclobenzaprine HCl [Flexeril] 10 mg PO TID PRN #15 tab 01/10/17 Indomethacin 50 mg PO TID PRN #14 cap 01/10/17 Methylprednisolone [Medrol Dose Darinel] 4 mg PO DAILY #1 tab 01/10/17 Gabapentin [Neurontin] 300 mg PO BID #60 cap 01/22/17 Tramadol HCl [Ultram] 50 mg PO Q6H PRN #30 tab 01/22/17 Albuterol Inhaler [Ventolin Hfa Inhaler] 108 mcg IN Q6HRS PRN #1 inh 04/24/17 Amoxicillin [Amoxil] 1,000 mg PO BID #30 cap 04/24/17 Albuterol Inhaler [Ventolin Hfa Inhaler] 108 mcg IN Q6HRS PRN 14 Days #1 inh Amoxicillin [Amoxil] 500 mg PO TID 10 Days #30 cap 10/30/17 Dextromethorphan-Diphenhydrami [Diabetic Tussin Night Yuri 10-12.5-325 mg/5Ml] 2 tsp PO TID PRN 14 Days #240 ml 10/30/17 Additional Instructions: Follow up with primary Md 01 November 2017;Return to ER as needed
--- NOTE | 2017-10-30 19:02 | RAD ---
EXAM DESCRIPTION: Chest,1 View CLINICAL HISTORY: 37 years Male, cough COMPARISON: April 23, 2017 TECHNIQUE: Portable AP view FINDINGS: Cardiac silhouette and mediastinum are unchanged. No infiltrates have developed. No pleural effusions. Bony thorax is intact IMPRESSION: No infiltrates Electronically signed by: Cj Monahan 10/30/2017 7:01 PM CDT
[2017-10-30] MEDS ORDERED: BENZONATATE PERLES 100 MG CAP PO ONE (19:19)
[2017-10-30] MEDS ORDERED: PROMETHAZINE HCL 25 MG TAB PO ONE (19:19)
[2017-10-30] MEDS ORDERED: PSEUDOEPHEDRINE HCL 30 MG TAB PO ONE (19:21)
[2017-10-30] MEDS ORDERED: CEFUROXIME AXETIL TAB 250 MG TAB PO ONE (19:21)
[2017-10-30 19:57] VITALS: BP 131/86; TEMP 98.3; O2SAT 97
== END 2017-10-30 19:57 | disposition home or self-care (01) ==
LOC: ER 18:06
DX: J20.9 Acute bronchitis, unspecified (principal); F17.210 Nicotine dependence, cigarettes, uncomplicated
CPT/HCPCS: 71045; 85025; 94640; J7620; Q0169

== ENCOUNTER 2018-02-13 10:51 | Emergency (ER) | payer OTHER ==
[2018-02-13 11:06] VITALS: TEMP 98.4
[2018-02-13] MEDS ORDERED: KETOROLAC TROMETHAMINE INJ 30 MG/ML VIAL IM ONE (11:19)
[2018-02-13] MEDS ORDERED: ORPHENADRINE CITRATE 30 MG/ML AMP IV ONE (11:20)
--- NOTE | 2018-02-13 11:23 | ED.PDOC ---
History of Present Illness - General Chief Complaint: Back Pain or Injury Stated Complaint: back pain Time Seen by Provider: 02/13/18 10:52 Source: patient Exam Limitations: no limitations - History of Present Illness Initial Comments: Patient presents with low back pain for four days. He was lifting a fence and heard and felt a "pop" in his lower back. Since then he has has lower lumbar pain mediall with radiation to the left leg. It is sharp and shooting in nature, constant but intermittent in intensity, worse with movement, better with rest. He says he has had a back sprain before. No other injuries nor complaints. Timing/Duration: other - 4 days Severity: moderate Improving Factors: rest Worsening Factors: movement Associated Symptoms: denies symptoms Allergies/Adverse Reactions: Allergies NO KNOWN ALLERGY Allergy (Verified 02/13/18 11:06) Home Medications: Ambulatory Orders Cyclobenzaprine HCl [Flexeril] 10 mg PO TID #30 tab 02/13/18 HYDROcodone 7.5MG/APAP 325MG [Howe 7.5/325] 1 ea PO .Q4H #30 tab 02/13/18 Review of Systems - Review of Systems Constitutional: States: no symptoms reported EENTM: States: no symptoms reported Respiratory: States: no symptoms reported Cardiology: States: no symptoms reported Gastrointestinal/Abdominal: States: no symptoms reported Musculoskeletal: States: see HPI Skin: States: no symptoms reported Neurological: States: no symptoms reported Endocrine: States: no symptoms reported Hematologic/Lymphatic: States: no symptoms reported Past Medical History (General) - Patient Medical History Hx Seizures: No Hx Stroke: No Hx Dementia: No Hx Asthma: No Hx of COPD: No Hx Cardiac Disorders: No Hx Congestive Heart Failure: No Hx Pacemaker: No Hx Hypertension: No Hx Thyroid Disease: No Hx Diabetes: No Hx Gastroesophageal Reflux: No Hx Renal Disease: No Hx Cancer: No Hx of HIV: No Hx Hepatitis C: No Hx MRSA: No MRSA Source:: Wound Surgical History: other - Vaccination History Hx Tetanus, Diphtheria Vaccination: No Hx Influenza Vaccination: No Hx Pneumococcal Vaccination: No - Social History Hx Tobacco Use: Yes Hx Alcohol Use: No Hx Substance Use: No Hx Substance Use Treatment: No Hx Depression: No Hx Physical Abuse: No Hx Emotional Abuse: No Hx Suspected Abuse: No Family Medical History - Family History Mother Family History: No Known Living Status: Still Living Hx Family Asthma: Yes - copd dad Physical Exam - Physical Exam General Appearance: Alert, Obvious distress Respiratory: lungs clear, normal breath sounds Cardiovascular/Chest: normal peripheral pulses, regular rate, rhythm, no edema Gastrointestinal/Abdominal: normal bowel sounds, non tender, soft Back Exam: no vertebral tenderness, other - straight leg raise is negative. Cross-leg raise is positive. Patient is unable to heel walk or flex the torso. Extremity: other - see Back Exam Neurologic: alert, normal mood/affect, oriented x 3 DTR: 1+: Achilles, right, Patellar, left Skin Exam: normal color Lymphatic: no adenopathy Progress - Progress Progress: 02/13/18 12:30 Radiographs showed degenerative disc disease at L5-S1 but no fractures. Patient was given Norflex 60 mg IM and Toradol 30 mg IM and that brought his pain down moderately. He was given an RX for hydrocodone/APAP and Flexeril. She was given E.R. warnings and care instructions. Questions were elicited and answered. The patient voiced understanding and agreement with the plan. Departure - Departure Clinical Impression: Degeneration of lumbosacral intervertebral disc, Sciatica Disposition: Discharge to Home or Self Care Condition: Good Departure Forms: ED Discharge - Pt. Copy, Patient Portal Self Enrollment Instructions: DI for Low Back Pain, DI for Back Pain With Sciatica, Degenerative Disc Disease (DC) Diet: resume usual diet Activity: increase activity as tolerated Referrals: Melani Darling NP [Primary Care Provider] - 1-2 Weeks Prescriptions: Cyclobenzaprine HCl [Flexeril] 10 mg PO TID #30 tab HYDROcodone 7.5MG/APAP 325MG [Howe 7.5/325] 1 ea PO .Q4H #30 tab Home Medications: Ambulatory Orders Cyclobenzaprine HCl [Flexeril] 10 mg PO TID #30 tab 02/13/18 HYDROcodone 7.5MG/APAP 325MG [Howe 7.5/325] 1 ea PO .Q4H #30 tab 02/13/18 Additional Instructions: You may also use ibuprofen or naproxen as directed on the bottle for pain. You can try heat or ice as well. See your regular doctor if no improvement in 2-4 weeks or if the pain is not completely resolved in 6 weeks. Return to the E.R. for loss of feeling in the legs or groin or for incontinence.
[2018-02-13] MEDS ORDERED: ORPHENADRINE CITRATE 30 MG/ML AMP IM ONE (11:27)
--- NOTE | 2018-02-13 12:19 | RAD ---
EXAM DESCRIPTION: Lumbar Spine 3 Views CLINICAL HISTORY: low back pain COMPARISON: None Available. TECHNIQUE: AP/lateral/coned-down lateral FINDINGS: There is good alignment of the lumbar spine. There is no fracture or bone lesion. Moderate disc space narrowing at L5-S1. All other disc space heights well-maintained. IMPRESSION: L5-S1 degenerative disc changes Electronically signed by: Lalito García MD 02/13/2018 12:18 PM [facility]
[2018-02-13 12:58] VITALS: BP 151/96; O2SAT 99
== END 2018-02-13 12:58 | disposition home or self-care (01) ==
LOC: ER 10:51
DX: M51.16 Intervertebral disc disorders with radiculopathy, lumbar region (principal); Z87.891 Personal history of nicotine dependence
CPT/HCPCS: 72100; J1885; J2360

== ENCOUNTER 2018-11-15 19:21 | Emergency (ER) | payer SELFPAY ==
[2018-11-15] MEDS ORDERED: IPRATROPIUM/ALBUTEROL 3 ML VIAL NEB ONE ×2 (19:42→19:44)
[2018-11-15] MEDS ORDERED: ALBUTEROL SULFATE NEBS (ED DISPENSE) 2.5 MG/3 ML VIAL NEB ONE (19:43)
[2018-11-15] MEDS ORDERED: ALBUTEROL SULFATE 2.5 MG/3 ML VIAL NEB ONE (19:43)
--- NOTE | 2018-11-15 19:54 | ED.PDOC ---
History of Present Illness - General Chief Complaint: Respiratory Problem Stated Complaint: congestion, cough x2 weeks Time Seen by Provider: 11/15/18 19:41 Source: patient, RN notes reviewed, Vital Signs reviewed Additional Information: patient is a 38-year-old white male who presents with complaints of cough, body aches, shortness of breath, intermittent nausea and vomiting as well as diarrhea. patient denies any fever. The cough is intermittently productive for green sputum. Patient denies any headache, joint swelling, dizziness, blurry vision, or chest pain. He additionally denies any PND. - History of Present Illness Severity: moderate Activities at Onset: none Possible Cause: no prior episodes Improving Factors: nothing Worsening Factors: movement Associated Symptoms: weakness, wheezing Respiratory Risk Factors: no cause identified Allergies/Adverse Reactions: Allergies NO KNOWN ALLERGY Allergy (Verified 11/15/18 19:39) Home Medications: Ambulatory Orders Azithromycin [Zithromax Z-Darinel] 500 mg PO DAILY 3 Days #6 tab 11/15/18 predniSONE 60 mg PO DAILY #15 tab 11/15/18 Review of Systems - Review of Systems Constitutional: States: see HPI, weakness EENTM: States: no symptoms reported. Denies: throat pain, throat swelling Respiratory: States: see HPI, cough, short of breath, wheezing. Denies: stridor Cardiology: States: no symptoms reported, see HPI Gastrointestinal/Abdominal: States: see HPI, diarrhea, nausea, vomiting Genitourinary: States: no symptoms reported Musculoskeletal: States: joint pain. Denies: joint swelling, muscle pain, muscle stiffness, neck pain Skin: States: no symptoms reported Neurological: States: see HPI, weakness. Denies: tingling, tremors All other Systems: Reviewed and Negative Past Medical History (General) - Patient Medical History Hx Seizures: No Hx Stroke: No Hx Dementia: No Hx Asthma: No Hx of COPD: No Hx Cardiac Disorders: No Hx Congestive Heart Failure: No Hx Pacemaker: No Hx Hypertension: No Hx Thyroid Disease: No Hx Diabetes: No Hx Gastroesophageal Reflux: No Hx Renal Disease: No Hx Cancer: No Hx of HIV: No Hx Hepatitis C: No Hx MRSA: No MRSA Source:: Wound Surgical History: no surgical history - Vaccination History Hx Tetanus, Diphtheria Vaccination: No Hx Influenza Vaccination: No Hx Pneumococcal Vaccination: No - Social History Hx Tobacco Use: Yes Hx Alcohol Use: No Hx Substance Use: No Hx Substance Use Treatment: No Hx Depression: No Hx Physical Abuse: No Hx Emotional Abuse: No Hx Suspected Abuse: No Family Medical History - Family History Mother Family History: No Known Living Status: Still Living Hx Family Asthma: Yes - copd dad Physical Exam - Physical Exam General Appearance: Alert, Anxious, Well Developed, Well Hydrated, Well Nourished, Other - patient smells heavily of cigarette smoke. Eyes, Ears, Nose, Throat Exam: PERRL/EOMI, normal ENT inspection, pharynx normal Neck: non-tender, full range of motion, supple, normal inspection Respiratory: chest non-tender, respiratory distress - mild, decreased breath sounds - diffusely, wheezing - diffusely Cardiovascular/Chest: normal peripheral pulses, regular rate, rhythm, no edema, no gallop, no JVD, no murmur, JVD Peripheral Pulses: radial,right: 2+, radial,left: 2+ Gastrointestinal/Abdominal: normal bowel sounds, non tender, soft Extremity: normal range of motion, non-tender, normal inspection Neurologic: healthcare interpreter II-XII nml as tested, no motor/sensory deficits, alert, normal mood/affect, oriented x 3 Skin Exam: normal color, warm/dry Lymphatic: no adenopathy Progress - Progress Progress: 11/15/18 21:08 patient with improved breathing after breathing treatment. No wheezing at this time. Plan on discharge home with a diagnosis of bronchopneumonia and starting him on antibiotics and. Additionally I will provide him with an inhaler prescription. Care with the patient and he voices understanding and agreement. Yamil Blanco M.D. #[id number] - Results/Orders Results/Orders: Chest, x-ray 2 Views CLINICAL HISTORY: cough x 2 weeks. Smoker COMPARISON: October 30, 2017 FINDINGS: Cardiac silhouette is within normal limits. There is no focal parenchymal or pleural disease. There is no acute osseous process visualized. IMPRESSION: No evidence of acute cardiopulmonary disease. Electronically signed by: Amarjit Mane MD 11/15/2018 8:34 PM Departure - Departure Clinical Impression: Bronchopneumonia due to bacteria, Dyspnea and respiratory abnormalities Time of Disposition: 21:10 Disposition: Discharge to Home or Self Care Condition: Good Departure Forms: ED Discharge - Pt. Copy, Patient Portal Self Enrollment Instructions: DI for Pneumonia -- Adult Referrals: Melani Darling NP [Primary Care Provider] - 1-2 Weeks Prescriptions: Azithromycin [Zithromax Z-Darinel] 500 mg PO DAILY 3 Days #6 tab predniSONE 60 mg PO DAILY #15 tab Home Medications: Ambulatory Orders Azithromycin [Zithromax Z-Darinel] 500 mg PO DAILY 3 Days #6 tab 11/15/18 predniSONE 60 mg PO DAILY #15 tab 11/15/18
--- NOTE | 2018-11-15 20:36 | RAD ---
EXAM DESCRIPTION: Chest, x-ray 2 Views CLINICAL HISTORY: cough x 2 weeks. Smoker COMPARISON: October 30, 2017 FINDINGS: Cardiac silhouette is within normal limits. There is no focal parenchymal or pleural disease. There is no acute osseous process visualized. IMPRESSION: No evidence of acute cardiopulmonary disease. Electronically signed by: Amarjit Mane MD 11/15/2018 8:34 PM CDT
[2018-11-15] MEDS ORDERED: AZITHROMYCIN 250 MG TAB PO ONE (21:15)
[2018-11-15] MEDS ORDERED: predniSONE 20 MG TAB PO ONE (21:16)
[2018-11-15 21:26] VITALS: BP 143/91; TEMP 97.8; O2SAT 97
== END 2018-11-15 21:24 | disposition home or self-care (01) ==
LOC: ER 19:21
DX: J15.9 Unspecified bacterial pneumonia (principal); R11.2 Nausea with vomiting, unspecified; R19.7 Diarrhea, unspecified; Z87.891 Personal history of nicotine dependence
CPT/HCPCS: 71046; 87502; J7512; J7611; J7620; Q0144

== ENCOUNTER 2019-07-09 11:22 | Emergency (ER) | payer SELFPAY ==
[2019-07-09] MEDS ORDERED: KETOROLAC TROMETHAMINE INJ 30 MG/ML VIAL IM ONE (11:41)
[2019-07-09 11:50] VITALS: TEMP 98.6
--- NOTE | 2019-07-09 11:51 | ED.PDOC ---
History of Present Illness - General Chief Complaint: Respiratory Problem Time Seen by Provider: 07/09/19 11:40 Source: patient, RN notes reviewed, Vital Signs reviewed, family - Significant other Exam Limitations: no limitations - History of Present Illness Initial Comments: Patient presents with complaints of cough and fever x1 week. It is worsening. He is now got worsening shortness of breath with the cough. Additionally he feels very weak and fatigued. The fever is subjective. The cough is nonproductive. The cough is harsh. Nothing makes the cough better or worse. He has worsening chest pain with deep inspiration or cough. Timing/Duration: 1 week Improving Factors: nothing Worsening Factors: movement, other - Cough and deep inspiration Associated Symptoms: denies symptoms, cough, fever/chills, malaise, shortness of breath Allergies/Adverse Reactions: Allergies NO KNOWN ALLERGY Allergy (Verified 07/09/19 11:49) Home Medications: Ambulatory Orders Azithromycin [Zithromax Z-Darinel] 500 mg PO DAILY 3 Days #6 tab 11/15/18 predniSONE 60 mg PO DAILY #15 tab 11/15/18 Guaifenesin-Codeine [Guaifenesin AC] 10 syp PO Q6H PRN #180 syp 07/09/19 Methylprednisolone [Medrol Dose Darinel] 4 mg PO DAILY 6 Days #21 tab 07/09/19 Review of Systems - Review of Systems Constitutional: States: see HPI, chills, fever, malaise, weakness EENTM: States: nose congestion. Denies: ear pain, nose pain, throat pain, throat swelling Respiratory: States: see HPI Cardiology: States: chest pain - Burning in nature.. Denies: edema, palpitations, syncope Gastrointestinal/Abdominal: States: no symptoms reported. Denies: abdominal p ain, diarrhea, nausea, vomiting Genitourinary: States: no symptoms reported Musculoskeletal: States: no symptoms reported. Denies: back pain, neck pain Neurological: States: weakness. Denies: headache, numbness, paresthesia, tingling Endocrine: States: no symptoms reported Hematologic/Lymphatic: States: no symptoms reported All other Systems: Reviewed and Negative Past Medical History (General) - Patient Medical History Hx Seizures: No Hx Stroke: No Hx Dementia: No Hx Asthma: No Hx of COPD: No Hx Cardiac Disorders: No Hx Congestive Heart Failure: No Hx Pacemaker: No Hx Hypertension: No Hx Thyroid Disease: No Hx Diabetes: No Hx Gastroesophageal Reflux: No Hx Renal Disease: No Hx Cancer: No Hx of HIV: No Hx Hepatitis C: No Hx MRSA: No MRSA Source:: Wound - Vaccination History Hx Tetanus, Diphtheria Vaccination: No Hx Influenza Vaccination: No Hx Pneumococcal Vaccination: No - Social History Hx Tobacco Use: Yes Hx Alcohol Use: No Hx Substance Use: No Hx Substance Use Treatment: No Hx Depression: No Hx Physical Abuse: No Hx Emotional Abuse: No Hx Suspected Abuse: No Family Medical History - Family History Mother Family History: No Known Living Status: Still Living Hx Family Asthma: Yes - copd dad Physical Exam - Physical Exam General Appearance: Alert, Anxious, Well Developed, Well Hydrated, Well Nourished, Other - Patient smells of cigarette smoke. Eye Exam: bilateral normal Ears, Nose, Throat: hearing grossly normal, normal pharynx Neck: non-tender, full range of motion, supple, normal inspection Respiratory: chest non-tender, lungs clear, normal breath sounds, no respiratory distress, no accessory muscle use Cardiovascular/Chest: normal peripheral pulses, regular rate, rhythm, no edema, no gallop, no JVD, no murmur Peripheral Pulses: radial,right: 2+, radial,left: 2+ Gastrointestinal/Abdominal: normal bowel sounds, non tender, soft, no organomegaly, no pulsatile mass Back Exam: normal inspection, no CVA tenderness, no vertebral tenderness Extremity: normal range of motion, non-tender, normal inspection 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 07/09/19 12:57 Chest x-ray is negative for pneumonia. Influenza swabs are negative. COVID testing is pending though I find it unlikely that he has COVID. Plan on discharge home with diagnosis of viral upper respiratory tract infection. I will provide him with cough medicine and a steroid pack. I discussed this plan of care with the patient and his significant other and they voiced understanding and agreement with the plan of care. Yamil Blanco M.D. #[id number] - Results/Orders Results/Orders: : 1980. Technique: Portable AP chest x-ray. Comparison: November 15, 2018. Clinical history: cough and fever. Heart size: Normal. Lungs: No acute consolidation. No evidence for pneumonia. Pleura: No pleural effusion. No pneumothorax. Mediastinum and logan: Unremarkable. Skeletal: Unremarkable. Support tubings: None. Impression: 1. No active disease in the chest. Electronically signed by: Mayito Bobby MD 07/09/2019 12:16 PM 07/09/19 12:05 SARS-COV2 PCR HIGH RISK Stat Pending Influenza A: Negative Influenza B: Negative Departure - Departure Clinical Impression: Viral upper respiratory tract infection with cough, Costochondritis, acute Time of Disposition: 13:05 Disposition: Discharge to Home or Self Care Condition: Good Departure Forms: ED Discharge - Pt. Copy, Patient Portal Self Enrollment Instructions: Viral Upper Respiratory Infection, Adult (DC), Costochondritis (DC) Diet: resume usual diet Activity: increase activity as tolerated Prescriptions: Guaifenesin-Codeine [Guaifenesin AC] 10 syp PO Q6H PRN #180 syp PRN Reason: Cough Methylprednisolone [Medrol Dose Darinel] 4 mg PO DAILY 6 Days #21 tab Home Medications: Ambulatory Orders Azithromycin [Zithromax Z-Darinel] 500 mg PO DAILY 3 Days #6 tab 11/15/18 predniSONE 60 mg PO DAILY #15 tab 11/15/18 Guaifenesin-Codeine [Guaifenesin AC] 10 syp PO Q6H PRN #180 syp 07/09/19 Methylprednisolone [Medrol Dose Darinel] 4 mg PO DAILY 6 Days #21 tab 07/09/19
--- NOTE | 2019-07-09 12:17 | RAD ---
: 1980. Technique: Portable AP chest x-ray. Comparison: November 15, 2018. Clinical history: cough and fever. Heart size: Normal. Lungs: No acute consolidation. No evidence for pneumonia. Pleura: No pleural effusion. No pneumothorax. Mediastinum and logan: Unremarkable. Skeletal: Unremarkable. Support tubings: None. Impression: 1. No active disease in the chest. Electronically signed by: Mayito Bobby MD 07/09/2019 12:16 PM CDT
[2019-07-09 13:56] VITALS: BP 119/63; O2SAT 97
== END 2019-07-09 13:15 | disposition home or self-care (01) ==
LOC: ER 11:22
DX: J06.9 Acute upper respiratory infection, unspecified (principal); M94.0 Chondrocostal junction syndrome [Tietze]; F17.200 Nicotine dependence, unspecified, uncomplicated
CPT/HCPCS: 36415; 71045; 87502; J1885; U0002